=== PATIENT | male | born 1985 | race Caucasian/White ===

== ENCOUNTER 2018-07-26 08:28 | Emergency (ER) | payer OTHER ==
[~2018-07-26] VITALS: Ht 182.9 cm; Wt 127.0 kg
[2018-07-26 11:24] VITALS: BP 123/88
[2018-07-26] MEDS ORDERED: LIDOCAINE 1% PF 30 ML VIAL. INJ ONE (12:00)
[2018-07-26] MEDS ORDERED: LIDOCAINE 1% Multi-Dose 20 ML VIAL. ONE (12:04)
[2018-07-26] MEDS ORDERED: SULF1TAB24 PO (12:57)
--- NOTE | 2018-07-26 12:57 | PHYS DOC ---
Past Medical History Past Medical History: No Pertinent History Past Surgical History: Tonsillectomy Additional Past Surgical Histo: dental Alcohol Use: Occasionally Drug Use: None Adult General Chief Complaint Chief Complaint: ABSCESS HPI HPI 33-year-old male presents to ER with complaints of abscess on upper left posterior leg. Patient reports over the past 2 days symptoms have worsened. He denies any fever, fatigue, or swelling in extremities. Pt denies any previous history with abscess. Patient denies finding insect or known insect bite to posterior leg. Pt denies numbness/tingling in legs. He reports he has been able to walk but does have increased pain at sore site lt upper leg. Review of Systems Review of Systems Constitutional: Denies fever or chills [] Cardiovascular: No additional information not addressed in HPI [] GI: Denies nausea, vomiting, bloody stools or diarrhea [] Musculoskeletal: Denies joint pain [] Integument: Reports sore lt upper/posterior leg- denies drainage/bleeding Neurologic: Denies headache, focal weakness or sensory changes [] All other systems were reviewed and found to be within normal limits, except as documented in this note. Current Medications Current Medications Current Medications Medications (Trade) Dose Ordered Sig/Fuentes Start Time Stop Time Status Last Admin Dose Admin Lidocaine HCl (Lidocaine 1% 20ml Vial) 20 ml STK-MED ONCE 07/26/18 12:04 07/26/18 12:06 DC Lidocaine HCl (Xylocaine 1% Pf 30ml Vial) 30 ml 1X ONCE 07/26/18 12:00 07/26/18 12:06 DC 07/26/18 12:00 30 ML Allergies Allergies Allergies Coded Allergies Type Severity Reaction Last Updated Verified No Known Drug Allergies 07/26/18 No Physical Exam Physical Exam Constitutional: Well developed, well nourished, no acute distress, non-toxic appearance. [] HENT: Normocephalic, atraumatic, oropharynx moist Eyes: Pupils equal, conjunctiva normal, no discharge. [] Neck: Normal range of motion, no tenderness, supple, no stridor. [] Cardiovascular: Heart rate regular rhythm, no murmur [] Lungs & Thorax: Bilateral breath sounds clear to auscultation. Resp. equal/ nonlabored Skin: Warm, dry Back: No tenderness, no CVA tenderness. [] Extremities: No cyanosis, no clubbing, ROM intact, no edema.2+ bilat posterior tibial/dorsalis pedis. Pt has abscess on lt mid upper/posterior leg with swelling/induration around wound approx. 4x4 circular in diameter- center of fluctuation in center. No red streaking from wound Neurologic: Alert and oriented X 3, normal motor function, normal sensory function, no focal deficits noted. [] Psychologic: Affect normal, judgement normal, mood normal. [] Current Patient Data Vital Signs Vital Signs Date Time Temp Pulse Resp B/P (MAP) Pulse Ox O2 Delivery O2 Flow Rate FiO2 07/26/18 11:24 98.2 79 18 123/88 (100) 97 Room Air 98.2 Lab Values Microbiology 07/26/18 Aerobic Culture - Final, Complete 07/26/18 Aerobic Culture Result 1 (REGGIE) - Final, Complete 07/26/18 Antimicrobic Susceptibility - Final, Complete 07/26/18 Gram Stain - Final, Complete 07/26/18 Gram Stain Result 1 (REGGIE) - Final, Complete 07/26/18 Gram Stain Result 2 (REGGIE) - Final, Complete EKG EKG [] Radiology/Procedures Radiology/Procedures Abscess Incision and Drainage with irrigation by id: [id number] Location: Upper left mid posterior leg Anesthesia: Local 1% Lidocaine 2mL Technique: #11 blade to incise wound w/instant purulent drainage. Irrigated. Disrupted loculations w/ instrumentation-moderate amount of purulent and serosanguineous drainage Packin/" iodoform Complications: Neurovascularly intact post procedure- no complications Pt tolerated procedure well with reports of improved pain at wound site Nonadherent dressing applied to wound site with tape to adhere. 48 hour wound check. Scar minimization instructions given. Wound culture was obtained and sent to lab Course & Med Decision Making Course & Med Decision Making Patient was evaluated in the ER for abscess on left upper mid posterior leg. Patient had I&D done of abscess and packing placed. Patient tolerated procedure well with no change in neuro or vascular status and left lower extremity. Wound culture was obtained and is pending at time of discharge. Wound care was discussed with patient along with plans for patient to have the wound reevaluated in 24 hours for packing removal. Patient has no PCP will provide clinic and physician referral information with discharge paperwork and patient unable to get into clinic he will return to ER for wound reevaluation. Will provide patient with prescription for Bactrim. Patient was offered pain medication but feels [id number] medications will be okay for pain control. Patient was in no distress at time of discharge with steady gait at bedside-he remaining nontoxic in appearance and was afebrile. Discharge instructions discussed and education provided on signs and symptoms to return to ER for. Following I&D patient reports he had significant improvement in pain in left upper leg at wound site. Staff Physician Addendum: I was working in the ER during the course of this patient's visit. I was available for consultation as needed, but I was not directly involved in the care of this patient. Dragon Disclaimer Dragon Disclaimer This electronic medical record was generated, in whole or in part, using a voice recognition dictation system. Departure Departure Impression: Primary Impression: Abscess Disposition: 01 HOME, SELF-CARE Condition: STABLE Referrals: NO PCP (PCP) Patient Instructions: Abscess Additional Instructions: You should have wound rechecked in 24 hours for packing removal. If unable to get into a primary care physician's office return to the emergency department for wound reevaluation. Tylenol and/or ibuprofen as directed on container as needed for pain. Warm compresses to affected area every 3-4 hours for 20-30 minutes at a time. Scripts Sulfamethoxazole/Trimethoprim (BACTRIM DS TABLET) 1 Each Tablet 1 TAB PO BID, #14 TAB 0 Refills Prov: GIANFRANCO DEUTSCH APRN 07/26/18 GIANFRANCO DEUTSCH APRN Jul 26, 2018 12:57 DEBBIE SHARMA MD Jul 31, 2018 17:57
== END 2018-07-26 13:13 | disposition home or self-care (01) ==
LOC: ER 08:28
DX: L02.416 Cutaneous abscess of left lower limb (principal); Z90.89 Acquired absence of other organs
CPT/HCPCS: 10060; 87070; 87186; 99283

== ENCOUNTER 2018-07-27 07:40 | Emergency (ER) | payer SELFPAY ==
[~2018-07-27] VITALS: Ht 185.4 cm; Wt 127.0 kg
[~2018-07-27 07:40] MED LIST: SULF1TAB24 PO
[2018-07-27 07:50] VITALS: BP 138/91
--- NOTE | 2018-07-27 08:15 | PHYS DOC ---
Past Medical History Past Medical History: No Pertinent History Past Surgical History: Tonsillectomy Additional Past Surgical Histo: dental Alcohol Use: Occasionally Drug Use: None Adult General Chief Complaint Chief Complaint: WOUND RECHECK/SUTURE REMOVAL [facility] Patient is a 33-year-old male who presents for packing removal. Patient was seen here for incision and drainage of an abscess yesterday. Patient states that pain is markedly improved. He denies any fever or other symptoms. Review of Systems Review of Systems Constitutional: Denies fever or chills [] Cardiovascular: No additional information not addressed in [facility] [] Integument: Positive abscess, status post I&D [] Allergies Allergies Allergies Coded Allergies Type Severity Reaction Last Updated Verified No Known Drug Allergies 07/26/18 No Physical Exam Physical Exam Constitutional: Well developed, well nourished, no acute distress, non-toxic appearance. [] Skin: Abscess site, around right posterior thigh/lower buttock, is clean, dry and intact. Packing removed and small amount of bloody drainage was noted. No further packing deemed necessary at this point. [] Neurologic: Alert and oriented X 3. [] Current Patient Data Vital Signs Vital Signs Date Time Temp Pulse Resp B/P (MAP) Pulse Ox O2 Delivery O2 Flow Rate FiO2 07/27/18 07:50 97.8 83 20 138/91 (107) 98 Room Air 97.8 EKG EKG [] Radiology/Procedures Radiology/Procedures [] Course & Med Decision Making Course & Med Decision Making Pertinent Labs and Imaging studies reviewed. (See chart for details) [] Dragon Disclaimer Dragon Disclaimer This electronic medical record was generated, in whole or in part, using a voice recognition dictation system. Departure Departure Impression: Primary Impression: Encounter for recheck of abscess following incision and drainage Disposition: HOME, SELF-CARE Condition: STABLE Referrals: NO PCP (PCP) Patient Instructions: Abscess, Care After AGA HARDWICK Jr. DO Jul 27, 2018 08:15
== END 2018-07-27 08:35 | disposition home or self-care (01) ==
LOC: ER 07:40
DX: Z48.01 Encounter for change or removal of surgical wound dressing (principal); Z90.89 Acquired absence of other organs
CPT/HCPCS: 99281